=== PATIENT | female | born 1990 | race Caucasian/White ===

== ENCOUNTER 2016-05-11 17:54 | Emergency (ER) | payer OTHER ==
[~2016-05-11] VITALS: Ht 162.5 cm; Wt 99.8 kg
[~2016-05-11 17:54] MED LIST: AMOXICILLIN500 MG PO; BACTRIM DS 8001 TA1 PO; KEFLEX500 MG PO; NAPROSYN500 MG PO; PRENATAL1 TA7 PO; RINGWORM14.2 GM TP
[2016-05-11] MEDS ORDERED: PHENTERMINE HCL15 MG PO (18:12)
[2016-05-11 18:19] VITALS: BP 149/96
[2016-05-11 18:34] LABS: BILIRUBIN NEGATIVE (NEGATIVE); BLOOD NEGATIVE (NEGATIVE); CLARITY SL CLOUDY (CLEAR); COLOR YELLOW (YELLOW); GLUCOSE NEGATIVE (NEGATIVE); KETONE NEGATIVE (NEGATIVE); LEUKO ESTERASE NEGATIVE (NEGATIVE); NITRITE NEGATIVE (NEGATIVE); PH 6.5 (5.0-9.0); PROTEIN NEGATIVE (NEGATIVE); SPECIFIC GRAVITY 1.015 (1.005-1.030)
[2016-05-11 18:36] LABS: BASO % 0.2 % (0.0-1.0); EOS # 0.1 10*3/uL (0.0-0.4); EOS % 0.8 % (1.0-4.0); HEMATOCRIT 38.6 % (37.0-47.0); HEMOGLOBIN 12.2 g/dl (12.0-16.0); LYMPH # 2.5 10*3/uL (1.3-4.4); LYMPH % 23.7 % (27.0-41.0); MEAN CELL VOLUME 77.4 fl (81.0-99.0); MEAN CORPUSCULAR HGB 24.4 pg (27.0-31.0); MEAN CORPUSCULAR HGB CONC 31.6 g/dl (33.0-37.0); MEAN PLATELET VOLUME 9.3 fl (9.6-12.3); MONO # 0.7 10*3/uL (0.1-1.0); MONO % 6.4 % (3.0-9.0); NEUT # 7.2 10*3/uL (2.3-7.9); NEUT % 68.6 % (47.0-73.0); PLATELET COUNT AUTOMATED 324 10*3/uL (130-400); RED BLOOD COUNT 4.99 10*6/uL (4.10-5.10); RED CELL DISTRI WIDTH 14.1 % (0-14.5); WHITE BLOOD COUNT 10.5 10*3/uL (4.8-10.8)
[2016-05-11 18:40] LABS: BACTERIA 2+; URINE REFLEX COMMENT YES (NO)
[2016-05-11 18:49] LABS: ALBUMIN 3.6 gm/dl (3.1-4.5); ALKALINE PHOSPHATASE 76 U/L (45-117); BILIRUBIN, TOTAL 0.3 mg/dl (0.2-1.0); BUN 13 mg/dl (7-24); CARBON DIOXIDE 28 mmol/L (21-32); CHLORIDE 105 mmol/L (98-107); EST GLOM FILT AFRICAN AMERICAN > 60 ml/min; GLUCOSE 91 mg/dL (65-99); POTASSIUM 3.7 mmol/L (3.5-5.1); SGOT/AST 8 IU/L (3-35); SGPT/ALT 17 U/L (12-78); SODIUM 141 mmol/L (136-145); TOTAL PROTEIN 7.8 gm/dL (6.4-8.2)
== END 2016-05-11 21:16 | disposition home or self-care (01) ==
LOC: ED 17:54
PROVIDERS: Physician Assistant
DX: N93.8 Other specified abnormal uterine and vaginal bleeding (principal)

== ENCOUNTER 2016-11-20 21:35 | Emergency (ER) | payer OTHER ==
[~2016-11-20] VITALS: Ht 172.7 cm; Wt 72.6 kg
[~2016-11-20 21:35] MED LIST changes: +PHENTERMINE HCL15 MG PO
[2016-11-20 21:53] VITALS: BP 141/102
[2016-11-20] MEDS ORDERED: OMNICEF300 MG PO (22:19)
== END 2016-11-20 22:59 | disposition home or self-care (01) ==
LOC: ED 21:35
DX: J02.9 Acute pharyngitis, unspecified (principal); Z79.899 Other long term (current) drug therapy

== ENCOUNTER → 2017-10-20 | Outpatient (CLI) | payer OTHER ==
[~2017-10-20] MED LIST changes: +CEPHALEXIN500 M1 PO; +OMNICEF300 MG PO
== END | disposition home or self-care (01) ==
LOC: US 14:21
DX: Z34.81 Encounter for supervision of other normal pregnancy, first trimester (principal); Z3A.01 Less than 8 weeks gestation of pregnancy

== ENCOUNTER 2017-10-26 06:09 | Emergency (ER) | payer OTHER ==
[~2017-10-26] VITALS: Ht 162.5 cm; Wt 77.1 kg
[2017-10-26 06:39] LABS: BASO % 0.2 % (0.0-1.0); EOS % 0.2 % (1.0-4.0); HEMOGLOBIN 10.7 g/dl (12.0-16.0); LYMPH # 1.2 10*3/uL (1.3-4.4); LYMPH % 13.8 % (27.0-41.0); MEAN CELL VOLUME 74.2 fl (81.0-99.0); MEAN CORPUSCULAR HGB 22.7 pg (27.0-31.0); MEAN CORPUSCULAR HGB CONC 30.6 g/dl (33.0-37.0); MEAN PLATELET VOLUME 10.2 fl (9.6-12.3); MONO # 0.7 10*3/uL (0.1-1.0); NEUT # 6.5 10*3/uL (2.3-7.9); NEUT % 77.6 % (47.0-73.0); PLATELET COUNT AUTOMATED 226 10*3/uL (130-400); RED BLOOD COUNT 4.72 10*6/uL (4.10-5.10); RED CELL DISTRI WIDTH 15.3 % (0-14.5); WHITE BLOOD COUNT 8.4 10*3/uL (4.8-10.8)
[2017-10-26 06:40] VITALS: BP 140/70
[2017-10-26 06:56] LABS: ALBUMIN 3.2 gm/dl (3.1-4.5); ALKALINE PHOSPHATASE 54 U/L (45-117); BUN 9 mg/dl (7-24); CHLORIDE 106 mmol/L (98-107); CREATININE 0.67 mg/dL (0.55-1.02); POTASSIUM 3.7 mmol/L (3.5-5.1); SGOT/AST 12 IU/L (3-35); SGPT/ALT 19 U/L (12-78); SODIUM 140 mmol/L (136-145); TOTAL PROTEIN 7.1 gm/dL (6.4-8.2)
== END 2017-10-26 08:44 ==
LOC: ED 06:09
PROVIDERS: Emergency Medicine
DX: O26.891 Other specified pregnancy related conditions, first trimester (principal); R10.30 Lower abdominal pain, unspecified; Z3A.01 Less than 8 weeks gestation of pregnancy; Z79.899 Other long term (current) drug therapy

== ENCOUNTER → 2017-12-07 | Outpatient (CLI) | payer OTHER | END | disposition home or self-care (01) | LOC: US 11-16 16:00 | DX: R93.89 Abnormal findings on diagnostic imaging of other specified body structures (principal); N93.9 Abnormal uterine and vaginal bleeding, unspecified ==

== ENCOUNTER 2018-06-14 09:34 | Emergency (ER) | payer OTHER ==
[~2018-06-14] VITALS: Ht 162.5 cm; Wt 81.6 kg
--- NOTE | ~2018-06-14 | EKG ---
[place], [place] ELECTROCARDIOGRAM REPORT NAME: SANTANA NO UNIT #: [id number] ROOM: DOCTOR: EPIPHANY DRAFT REPORT BIRTHDATE: [birth year] [facility] Test Date: 2018-06-14 Test Time: 10:21:35 Pat Name: SANTANA NO Department: Room: Gender: F Inspector Plating: Marianela Flores : 1990 Requested By: STEPHANIE WALKER Order Number: [id number] Reading MD: Prieto Wells MD Measurements Intervals [place] Rate: 86 P: 26 IN: 157 QRS: 6 QRSD: 98 T: 21 QT: 399 QTc: 478 Interpretive Statements Sinus rhythm Borderline prolonged QT interval Baseline wander in lead(s) III Electronically Signed On 06-15-2018 8:13:03 PDT by Prieto Wells MD CM:EKGRPT:ELECTROCARDIOGRAM REPORT 1021 [id number] STEPHANIE WALKER EPIPHANY DRAFT REPORT STEPHANIE WALKER
[~2018-06-14 09:34] MED LIST changes: +AUGMENTIN 875875 MG PO; +CLARITIN10 MG PO
[2018-06-14 11:55] VITALS: BP 151/94
[2018-06-14] MEDS ORDERED: MEDROL DOSEPAK4 MG PO (12:56)
[2018-06-14] MEDS ORDERED: NAPROSYN500 MG PO (12:56)
== END 2018-06-14 13:36 | disposition home or self-care (01) ==
LOC: ED
DX: R09.1 Pleurisy (principal); K21.9 Gastro-esophageal reflux disease without esophagitis; Z79.899 Other long term (current) drug therapy

== ENCOUNTER 2018-10-13 10:33 | Emergency (ER) | payer OTHER ==
[~2018-10-13] VITALS: Ht 162.5 cm; Wt 79.4 kg
[~2018-10-13 10:33] MED LIST changes: +MEDROL DOSEPAK4 MG PO
[2018-10-13 10:34] VITALS: BP 163/87
[2018-10-13 11:13] LABS: BILIRUBIN NEGATIVE (NEGATIVE); BLOOD NEGATIVE (NEGATIVE); CLARITY SL CLOUDY (CLEAR); COLOR YELLOW (YELLOW); GLUCOSE NEGATIVE (NEGATIVE); KETONE NEGATIVE (NEGATIVE); LEUKO ESTERASE 2+ (NEGATIVE); NITRITE NEGATIVE (NEGATIVE); SPECIFIC GRAVITY <= 1.005 (1.005-1.030); UROBILINOGEN 0.2 E.U./dl (0.2-1.0)
[2018-10-13 11:26] LABS: BACTERIA TRACE
[2018-10-13] MEDS ORDERED: SEPTDS PO (11:34)
[2018-10-14] MEDS ORDERED: DELTASONE20 M1 PO (18:15)
[2018-10-14] MEDS ORDERED: PEPCID20 MG PO (18:15)
[2018-10-14] MEDS ORDERED: CETIRIZINE10 MG PO (18:15)
[2018-10-14] MEDS ORDERED: Nizoral 2%15 GM T (18:46)
[2018-10-14] MEDS ORDERED: KENALOG 0.1%80 GM T (18:46)
[2018-10-25] MEDS ORDERED: ADIPEX-P37.5 MG PO (10:33)
== END 2018-10-13 11:41 | disposition home or self-care (01) ==
LOC: ED 10:33
PROVIDERS: Physician Assistant
DX: N39.0 Urinary tract infection, site not specified (principal); N89.8 Other specified noninflammatory disorders of vagina; Z32.02 Encounter for pregnancy test, result negative

== ENCOUNTER 2018-10-14 17:19 | Emergency (ER) | payer OTHER ==
[~2018-10-14] VITALS: Ht 162.5 cm; Wt 79.4 kg
[~2018-10-14 17:19] MED LIST changes: +SEPTDS PO
[2018-10-14 17:22] VITALS: BP 168/102
[2018-10-14] MEDS ORDERED: DELTASONE20 M1 PO (18:15)
[2018-10-14] MEDS ORDERED: PEPCID20 MG PO (18:15)
[2018-10-14] MEDS ORDERED: CETIRIZINE10 MG PO (18:15)
[2018-10-14] MEDS ORDERED: Nizoral 2%15 GM T (18:46)
[2018-10-14] MEDS ORDERED: KENALOG 0.1%80 GM T (18:46)
[2018-10-14 18:55] LABS: BASO % 0.2 % (0.0-1.0); EOS # 0.1 10*3/uL (0.0-0.4); EOS % 0.4 % (1.0-4.0); HEMATOCRIT 38.5 % (37.0-47.0); HEMOGLOBIN 11.9 g/dl (12.0-16.0); LYMPH % 12.2 % (27.0-41.0); MEAN CELL VOLUME 77.2 fl (81.0-99.0); MEAN CORPUSCULAR HGB 23.8 pg (27.0-31.0); MEAN CORPUSCULAR HGB CONC 30.9 g/dl (33.0-37.0); NEUT # 13.2 10*3/uL (2.3-7.9); NEUT % 80.9 % (47.0-73.0); PLATELET COUNT AUTOMATED 293 10*3/uL (130-400); RED BLOOD COUNT 4.99 10*6/uL (4.10-5.10); RED CELL DISTRI WIDTH 15.8 % (0-14.5); WHITE BLOOD COUNT 16.4 10*3/uL (4.8-10.8)
[2018-10-14 19:10] LABS: ALBUMIN 4.1 gm/dl (3.1-4.5); ALKALINE PHOSPHATASE 64 U/L (45-117); BUN 9 mg/dl (7-24); CHLORIDE 107 mmol/L (98-107); CREATININE 0.97 mg/dL (0.55-1.02); POTASSIUM 3.6 mmol/L (3.5-5.1); SGOT/AST 6 IU/L (3-35); SGPT/ALT 18 U/L (12-78); SODIUM 137 mmol/L (136-145); TOTAL PROTEIN 7.7 gm/dL (6.4-8.2)
== END 2018-10-14 19:01 | disposition home or self-care (01) ==
LOC: ED 17:19
PROVIDERS: Family Medicine
DX: T78.3XXA Angioneurotic edema, initial encounter (principal); R22.0 Localized swelling, mass and lump, head; T36.8X5A Adverse effect of other systemic antibiotics, initial encounter; N76.0 Acute vaginitis; Y92.89 Other specified places as the place of occurrence of the external cause

== ENCOUNTER → 2018-10-25 | Outpatient (CLI) | payer OTHER ==
[~2018-10-25] MED LIST changes: +ADIPEX-P37.5 MG PO; +CETIRIZINE10 MG PO; +DELTASONE20 M1 PO; +KENALOG 0.1%80 GM T; +Nizoral 2%15 GM T; +PEPCID20 MG PO
--- NOTE | ~2018-10-25 | ST ---
[place], [place] EXERCISE STRESS TEST REPORT NAME: SANTANA NO [facility] #: [id number] UNIT #: [id number] ROOM: DOCTOR: ODILON VENCES,MARLON BIRTHDATE: [birth year] DOS: 10/25/2018 REFERRING PHYSICIAN: Dr. Wise. REASON FOR TEST: Palpitations. PHYSICAL EXAMINATION NECK: Supple. LUNGS: Clear anteriorly. HEART: Regular rhythm. PROTOCOL: Zion protocol. Total stress time is 11 minutes. Maximum heart rate 181, which is 93% target heart rate. Total mets 11.5 mets. Peak blood pressure 162/84. SYMPTOMS: The patient is chest pain. EKG: Resting EKG showed sinus rhythm. Stress EKG showed no ischemia. The patient had 1 PVC during her stress. CONCLUSION: Clinically, patient is chest pain free. EKG nonischemic. POST-STRESS COMPLICATIONS: None. MARLON DONALD MD CM:STRESS:EXERCISE STRESS TEST REPORT [id number] 19 MARLON DONALD MD
--- NOTE | 2018-10-25 10:45 | NUR ---
INFORMED CONSENT OBTAINED FOR STANDARD GXT WITH DR. DONALD. RESTING EKG NSR WITH A SUPINE HR OF 83 WITH BP OF 112/80 AND HR OF 98 WITH BP OF 100/78 IN STANDING POSITION. PT COMPLETED 11:00 OF A MARLENE PROTOCOL WITH COMPLETION OF 2:00 OF STAGE IV AT 4.2 MPH AND 16% GRADE. REACHED A PEAK HR OF 181 WHICH IS 94% OF PREDICTED MAX WITH A PEAK BP OF 162/84. HAD NO CHEST PAIN OR ANY EKG CHANGES. HAD A VERY RARE PVC. TEST TERMINATED BECAUSE OF PHYSICIAN DISCRETION. NEGATIVE STANDARD GXT. LAST RECOVERY HR OF 106 WITH BP OF 124/80. IV DISCONTINUED AND DISCHARGED IN STABLE CONDITION.
== END | disposition home or self-care (01) ==
LOC: CARD 10-20 00:33
DX: R07.89 Other chest pain (principal)

== ENCOUNTER 2019-04-15 19:10 | Emergency (ER) | payer OTHER ==
[~2019-04-15] VITALS: Ht 165.1 cm; Wt 81.6 kg
[2019-04-15 19:27] VITALS: BP 152/97
[2019-04-15] MEDS ORDERED: AMOXICILLIN500 M2 PO (20:15)
[2019-04-15] MEDS ORDERED: Motrin,Rufen800 MG PO (20:15)
== END 2019-04-15 20:39 | disposition home or self-care (01) ==
LOC: ED 19:10
DX: K08.89 Other specified disorders of teeth and supporting structures (principal); R09.89 Other specified symptoms and signs involving the circulatory and respiratory systems; Z88.8 Allergy status to other drugs, medicaments and biological substances; Z79.899 Other long term (current) drug therapy

== ENCOUNTER 2019-09-04 09:25 | Emergency (ER) | payer OTHER ==
[~2019-09-04] VITALS: Ht 162.5 cm; Wt 83.9 kg
[~2019-09-04 09:25] MED LIST changes: +AMOXICILLIN500 M2 PO; +Motrin,Rufen800 MG PO
[2019-09-04 09:33] VITALS: BP 152/86
[2019-09-04] MEDS ORDERED: PREDNISONE20 M1 PO (09:40)
[2019-09-04] MEDS ORDERED: FLONASE ALLERG9.9 ML NAS (09:40)
[2019-09-04] MEDS ORDERED: ALLEGRA-D 24 H1 EACH PO (09:41)
== END 2019-09-04 09:41 | disposition home or self-care (01) ==
LOC: ED 09:25
DX: J30.9 Allergic rhinitis, unspecified (principal); F17.200 Nicotine dependence, unspecified, uncomplicated; Z88.8 Allergy status to other drugs, medicaments and biological substances; Z88.2 Allergy status to sulfonamides; Z79.899 Other long term (current) drug therapy

== ENCOUNTER → 2020-02-04 | Outpatient (CLI) | payer OTHER ==
[~2020-02-04] MED LIST changes: +ALLEGRA-D 24 H1 EACH PO; +FLONASE ALLERG9.9 ML NAS; +PREDNISONE20 M1 PO
== END | disposition home or self-care (01) ==
LOC: US 13:08
PROVIDERS: ATTEND Nurse Practitioner Women's Health
DX: O34.81 Maternal care for other abnormalities of pelvic organs, first trimester (principal); N83.12 Corpus luteum cyst of left ovary; Z3A.08 8 weeks gestation of pregnancy

== ENCOUNTER → 2020-02-15 | Outpatient (CLI) | payer OTHER | END | disposition home or self-care (01) | LOC: US 14:31 | PROVIDERS: ATTEND Nurse Practitioner Women's Health | DX: Z33.1 Pregnant state, incidental (principal) ==

== ENCOUNTER → 2020-02-28 | Outpatient (CLI) | payer OTHER | END | disposition home or self-care (01) | LOC: COVID19 14:54 | PROVIDERS: ATTEND Internal Medicine | DX: Z20.822 Contact with and (suspected) exposure to COVID-19 (principal) ==

== ENCOUNTER → 2020-04-30 | Outpatient (CLI) | payer OTHER | END | disposition home or self-care (01) | LOC: US 11:20 | PROVIDERS: ATTEND Nurse Practitioner Women's Health | DX: Z34.82 Encounter for supervision of other normal pregnancy, second trimester (principal); Z3A.20 20 weeks gestation of pregnancy ==

== ENCOUNTER → 2020-07-11 | Outpatient (CLI) | payer OTHER | END | disposition home or self-care (01) | LOC: LAB 11:59 | PROVIDERS: ATTEND Nurse Practitioner Women's Health | DX: O16.1 Unspecified maternal hypertension, first trimester (principal); O26.811 Pregnancy related exhaustion and fatigue, first trimester; Z3A.13 13 weeks gestation of pregnancy ==

== ENCOUNTER → 2020-07-30 | Outpatient (CLI) | payer OTHER | END | disposition home or self-care (01) | LOC: LAB 08:43 | PROVIDERS: ATTEND Nurse Practitioner Women's Health | DX: O99.810 Abnormal glucose complicating pregnancy (principal); Z3A.29 29 weeks gestation of pregnancy ==

== ENCOUNTER → 2021-03-30 | Outpatient (CLI) | payer OTHER ==
[2021-03-30 07:26] LABS: BILIRUBIN Negative (Negative); BLOOD 3+ (Negative); CLARITY Clear (Clear); COLOR Yellow (Yellow); GLUCOSE Negative (Negative); KETONE 4+ (Negative); LEUKO ESTERASE Negative (Negative); NITRITE Negative (Negative); PH 5.5 (4.5-8.0); SPECIFIC GRAVITY >= 1.030 (1.001-1.030)
[2021-03-30 07:28] LABS: BASO % 0.2 % (0.0-1.0); EOS # 0.1 10*3/uL (0.0-0.4); EOS % 0.5 % (1.0-4.0); HEMATOCRIT 42.8 % (37.0-47.0); MEAN CELL VOLUME 76.2 fl (81.0-99.0); MEAN CORPUSCULAR HGB 24.7 pg (27.0-31.0); MEAN CORPUSCULAR HGB CONC 32.5 g/dl (33.0-37.0); MEAN PLATELET VOLUME 8.9 fl (9.6-12.3); MONO # 0.7 10*3/uL (0.1-1.0); MONO % 6.7 % (3.0-9.0); NEUT % 83.4 % (47.0-73.0); PLATELET COUNT AUTOMATED 335 10*3/uL (130-400); RED BLOOD COUNT 5.62 10*6/uL (4.10-5.10); WHITE BLOOD COUNT 10.8 10*3/uL (4.8-10.8)
[2021-03-30 07:44] LABS: BUN 11 mg/dl (7-24); CHLORIDE 105 mmol/L (98-107); CREATININE 0.75 mg/dL (0.55-1.02); POTASSIUM 3.7 mmol/L (3.5-5.1); SODIUM 136 mmol/L (136-145)
[2021-03-30 09:25] LABS: BACTERIA 2+; CALCIUM OXALATE CRYSTALS 1+; MUCOUS 2+
[2021-04-02 15:07] LABS: CREATININE, RANDOM URINE 276.1 mg/dL (Not Estab.)
[2021-04-03 10:07] LABS: ALDOSTERONE, SERUM 3.9 ng/dL (0.0-30.0)
[2021-04-05 16:06] LABS: ALDOSTERONE/RENIN RATIO 0.3 (0.0-30.0); RENIN ACTIVITY (PLASMA) 15.286 ng/mL/hr (0.167-5.380)
== END | disposition home or self-care (01) ==
LOC: LAB 06:52
PROVIDERS: ATTEND Family Medicine
DX: R00.0 Tachycardia, unspecified (principal); R03.0 Elevated blood-pressure reading, without diagnosis of hypertension

== ENCOUNTER → 2021-05-08 | Outpatient (CLI) | payer OTHER | END | disposition home or self-care (01) | LOC: US 09:09 | PROVIDERS: ATTEND Family Medicine | DX: I10 Essential (primary) hypertension (principal); R00.0 Tachycardia, unspecified ==

== ENCOUNTER 2023-09-17 11:25 | Emergency (ER) | payer OTHER ==
[~2023-09-17] VITALS: Ht 162.5 cm; Wt 99.8 kg
[2023-09-17 12:03] VITALS: BP 154/99
[2023-09-17] MEDS ORDERED: AMOX-CLAV 875-1 EACH PO (12:07)
[2023-09-17] MEDS ORDERED: Amoxicillin/Clavulanate Pota 875 MG TAB PO ONE (12:10)
== END 2023-09-17 12:15 | disposition home or self-care (01) ==
LOC: ED 11:25
DX: H66.91 Otitis media, unspecified, right ear (principal); J02.9 Acute pharyngitis, unspecified; Z88.2 Allergy status to sulfonamides; Z88.8 Allergy status to other drugs, medicaments and biological substances